=== PATIENT | female | born 1950 | race Caucasian/White ===

== ENCOUNTER 2016-11-01 16:32 | Emergency (ER) ==
[2016-11-01 17:07] LABS: MANUAL DIFF NEEDED? NO
--- NOTE | 2016-11-01 17:09 | PROVIDER DOCUMENTATION ---
HPI-Female /OB/Breast - General Chief Complaint: Flank Pain Stated Complaint: BLOODY STOOL Time Seen by Provider: 11/01/16 16:54 Source: reports: patient Allergies/Adverse Reactions: Patient Allergies Allergy/AdvReac Type Severity Reaction Status Date / Time morphine Allergy Severe RASH Verified 11/01/16 17:46 Home Medications: Home Meds Unobtainable 11/01/16 - History of Present Illness-Female /OB Nature of Presenting Problem: Pt is a 66 y/o female c chief complaint of painless hematuria starting this morning. Pt states that she had gross hematuria that has worsened and passing blood clots. Pt states that she has had a h/o breast cancer (in remission 13 years). Pt had an elective hysterectomy (does not recall the year) because she was concerned about cancer in her reproductive organs. Pt also has a h/o htn, hld (untreated), and depression. On arrival, pt is in no distress. Review of Systems - Adult - REVIEW OF SYSTEMS - ADULT Constitutional: reports: no symptoms reported. denies: chills, fatique Eyes: reports: no symptoms reported. denies: blurred vision, double vision Ears, Nose, Mouth & Throat: reports: no symptoms reported. denies: ear discharge, nose pain Cardiovascular: reports: no symptoms reported. denies: chest pain, orthopnea Respiratory: reports: no symptoms reported. denies: cough, shortness of breath Gastrointestinal: reports: no symptoms reported. denies: difficulty swallowing , frequent heartburn Genitourinary: reports: hematuria Musculoskeletal: reports: no symptoms reported Integumentary: reports: no symptoms reported. denies: itching, rash Neurological: reports: no symptoms reported. denies: numbness, paresthesia Psychiatric: reports: no symptoms reported. denies: anxiety, emotional problems Endocrine: reports: no symptoms reported. denies: cold intolerance, heat intolerance Hematologic/Lymphatic: reports: no symptoms reported. denies: blood clots, low blood count Allergic/Immunologic: reports: no symptoms reported. denies: allergic reactions , food allergy All Other Systems: Reviewed and Negative Past History - Adult - PAST MEDICAL HISTORY-ADULT Review of Records: reports: Old Records Reviewed, Nursing Assessment Review, Medications Reviewed, Social history reviewed & non-contributory. Major Childhood Illnesses: reports: denies history Cardiovascular: reports: HTN, hyperlipidemia Respiratory: reports: denies history Gastrointestinal: reports: denies history Obstetrical/Gynecological: reports: denies history Genitourinary: reports: denies history Musculoskeletal: reports: denies history Neurological: reports: denies history Psychiatric: reports: depression Endocrine/Immune: reports: denies history Other Conditions: reports: other cancer (breast) - PRIOR SURGERIES/PROCEDURES Surgical/Procedure History: reports: breast (L mastectomy) - IMMUNIZATION STATUS Childhood Immunizations: See Nurse Assessment Flu Vaccine: See Nurse Assessment - FAMILY HISTORY Family History: reviewed, not pertinent - SOCIAL HISTORY Smoking: denies Substance Use: none/never Alcohol Use Frequency: never Living Situation: family Physical Exam-General - PHYSICAL EXAM-ADULT Initial Vital Signs Reviewed: Yes - CONSTITUTIONAL General Appearance: appears well, alert, no apparent distress - EYES Eyes: PERRL/EOMI, pink conjunctivae - HEAD, EARS, NOSE, MOUTH & THROAT HENMT: normocephalic/atraumatic, moist mucous membranes, normal ENT inspection - NECK Neck: non-tender, full range of motion, normal inspection - RESPIRATORY Respiratory: chest non-tender, lungs clear, normal breath sounds - CARDIOVASCULAR Cardiovascular: normal peripheral pulses, regular rate, rhythm, no edema - GASTROINTESTINAL (ABDOMEN) Abdominal Exam: normal bowel sounds, non tender, soft. negative: no organomegaly, no pulsatile mass, abdominal bruit, abnormal bowel sounds, distended, guarding, rigid, rebound, tenderness, hernia, mass, hepatomegaly, spleenomegaly, McBurney's point tenderness, Carter's sign, obturator sign, prominent aortic pulsations, psoas, Rovsing's sign - LYMPHATIC Lymphatic: no adenopathy - MUSCULOSKELETAL Back Exam: normal inspection, no CVA tenderness, no vertebral tenderness Extremity: normal range of motion, non-tender, normal gait - SKIN Integumentary: normal color, normal turgor, warm/dry - NEUROLOGIC Neurologic: grossly normal, no motor/sensory deficits - PSYCHIATRIC Psych/Mental Status: normal mood/affect, normal thought content, normal thought process, oriented x 3 Progress - PLAN OF CARE/RESULTS Progress/Plan/Lab Results: Orders Category Date Time Status CT ABD/PELVIS W/ IV CONT ONLY [CT] Stat Exams 11/01/16 17:11 Taken CBC WITH ELECTRONIC DIFF [HEME] Stat Lab 11/01/16 16:42 Completed COMPREHENSIVE METABOLIC PANEL [CHEM] Stat Lab 11/01/16 16:42 Received PROTIME WITH INR [COAG] Stat Lab 11/01/16 16:42 Received PTT [COAG] Stat Lab 11/01/16 16:42 Received UA NIMS W/REFLEX CULT [URINALYSIS] Stat Lab 11/01/16 16:44 Completed Laboratory Tests 11/01/16 11/01/16 11/01/16 16:42 16:42 16:42 WBC 8.31 RBC 5.18 Hgb 14.9 Hct 44.4 MCV 85.7 MCH 28.8 MCHC 33.6 RDW Std Deviation 13.2 Plt Count 264 MPV 10.5 H Immature Gran % (Auto) 0.4 Neut % (Auto) 62.0 Lymph % (Auto) 26.4 [place] % (Auto) 6.4 Eos % (Auto) 4.6 Baso % (Auto) 0.2 Immature Gran # (Auto) 0.03 Neut # (Auto) 5.16 Lymph # (Auto) 2.19 [place] # (Auto) 0.53 Eos # (Auto) 0.38 Baso # (Auto) 0.02 PT 10.4 INR 0.98 PTT (Actin FS) 27.1 Sodium 138 Potassium 4.4 Chloride 101 Carbon Dioxide 25 Anion Gap 12 BUN 17 Creatinine 0.8 Estimated GFR/1.73 m2 > 60 BUN/Creatinine Ratio 21 Glucose 99 Calculated Osmolality 277 Calcium 9.4 Total Bilirubin 0.29 AST 21 ALT 24 Alkaline Phosphatase 94 Total Protein 7.1 Albumin 4.0 Globulin 3.1 Albumin/Globulin Ratio 1.3 Urine Source Urine Color Urine Turbidity Urine pH Ur Specific [place] Urine Protein Ur Glucose (Stick) Ur Ketones (Stick) Urine Blood Urine Nitrite Urine Bilirubin Urobilinogen Dipstick Urine Leukocytes Urine WBC (Auto) Urine RBC (Auto) U Epithel Cells (Auto) Urine Bacteria (Auto) 11/01/16 16:44 WBC RBC Hgb Hct MCV MCH MCHC RDW Std Deviation Plt Count MPV Immature Gran % (Auto) Neut % (Auto) Lymph % (Auto) [place] % (Auto) Eos % (Auto) Baso % (Auto) Immature Gran # (Auto) Neut # (Auto) Lymph # (Auto) [place] # (Auto) Eos # (Auto) Baso # (Auto) PT INR PTT (Actin FS) Sodium Potassium Chloride Carbon Dioxide Anion Gap BUN Creatinine Estimated GFR/1.73 m2 BUN/Creatinine Ratio Glucose Calculated Osmolality Calcium Total Bilirubin AST ALT Alkaline Phosphatase Total Protein Albumin Globulin Albumin/Globulin Ratio Urine Source CLEAN CATCH Urine Color BROWN Urine Turbidity CLEAR Urine pH 7.0 Ur Specific [place] 1.002 Urine Protein 70 A Ur Glucose (Stick) NEGATIVE Ur Ketones (Stick) NEGATIVE Urine Blood LARGE A Urine Nitrite NEGATIVE Urine Bilirubin NEGATIVE Urobilinogen Dipstick NORMAL Urine Leukocytes TRACE A Urine WBC (Auto) <10 Urine RBC (Auto) TNTC A U Epithel Cells (Auto) <10 Urine Bacteria (Auto) NEGATIVE Vital Signs - 24 hr 11/01/16 16:34 Temperature 97.4 F L Pulse Rate 74 Respiratory 18 Rate Blood Pressure 187/95 O2 Sat by Pulse 99 Oximetry - REASSESSMENT Reassessment #1 Time Reassessed: 18:27 (Discussed c Dr. Garcia (ER MD) who agreed c workup and plan of care. ) - CT/MRI 1 CT Study: Abdomen, Pelvis Impression: Abnormal (unremarkable kidneys and bladder. GB full of stones c no surrounding inflammatory change. 1.3cm nodule adjacent to the R adrenal that is probably a prominent node but is nonspecific. No definite acute pathology - prelim radiology report) Departure - Departure Time of Disposition Order: 18:28 DIAGNOSIS: Hematuria Disposition: HOME 01 Certified Medical Emergency: Emergent Condition: Stable Additional Instructions: ED Follow Up Instructions: You have been treated by a care provider in the Emergency Department. These instructions are being provided to you so you can have an understanding of how to care for yourself upon discharge. Upon discharge from the Emergency Department, you are responsible for making arrangements for follow-up care by a physician of your choice. Take all prescribed medications as directed. Return to the Emergency Department immediately for any new or worsening symptoms. You may call the Physician Referral phone number at [phone] to obtain a list of Physicians who are taking new patients. Referrals: Dwight Grajeda MD [Primary Care Provider] - Hesham Cavazos DO [STAFF PHYSICIAN] - Attestation - Physician/ Mid-level Attestation Patient care was provided by Mid-level provider (CHANNEL DIRECTOR/PA):: Yes Mid-level provider:: Jose Raul Valentine Mid-level documentation review:: The Mid-level provider documentation, treatment plan and medical decision making was reviewed by the physician who agrees with all treatment and medical decision making by the MLP.
[2016-11-01 17:10] LABS: BASO% 0.2 % (0.0-0.8); EOS# 0.38 X1000 (0.0-0.7); EOS% 4.6 % (0.0-10.0); HEMATOCRIT 44.4 % (37.0-47.0); HEMOGLOBIN 14.9 g/dL (12.0-16.0); IMM GRAN# 0.03 X1000 (0.0-0.04); IMM GRAN% 0.4 % (0.0-0.5); LYMPH# 2.19 X1000 (1.2-3.4); LYMPH% 26.4 % (20.5-51.1); MCH 28.8 PG (27-31); MCHC 33.6 g/dL (33-37); MCV 85.7 FL (81-99); MONO# 0.53 X1000 (0.11-0.59); MONO% 6.4 % (1.7-9.3); MPV 10.5 FL (7.4-10.4); PLT 264 X1000 (130-400); RBC 5.18 XMIL (4.2-5.4)
[2016-11-01 17:14] LABS: URINE MICRO REVIEW NEEDED? NO; URINE SOURCE CLEAN CATCH
[2016-11-01 17:19] LABS: BILIRUBIN URINE NEGATIVE (NEGATIVE); BLOOD URINE LARGE (NEGATIVE); COLOR BROWN; GLUCOSE URINE NEGATIVE (NEGATIVE); LEUKOCYTES URINE TRACE (NEGATIVE); NITRITE URINE NEGATIVE (NEGATIVE); PROTEIN URINE 70 mg/dL (NEGATIVE); SP GRAVITY URINE 1.002; TURBIDITY URINE CLEAR (CLEAR); UR EPITHELIAL CELLS <10 /HPF (<10); URINE BACTERIA NEGATIVE /HPF; URINE CULTURE NEEDED? YES; URINE RBC TNTC /HPF (<10); URINE WBC <10 /HPF (<10); UROBILINOGEN URINE NORMAL (NORMAL)
[2016-11-01 17:22] LABS: INR 0.98; PROTIME 10.4 Seconds (9.2-11.7); PTT 27.1 Seconds (22.0-36.0)
[2016-11-01 17:34] LABS: AGAP 12; ALKALINE PHOSPHATASE 94 U/L (32-104); BUN 17 mg/dL (8-22); CALCIUM 9.4 mg/dL (8.8-10.2); CHLORIDE 101 mmol/L (98-107); COSMO 277; GOT 21 U/L (10-30); GPT 24 U/L (10-36); POTASSIUM 4.4 mmol/L (3.5-5.1); SODIUM 138 mmol/L (136-145); TCO2 25 mmol/L (25-35); TOTAL BILIRUBIN 0.29 mg/dL (0.20-1.00); TOTAL PROTEIN 7.1 g/dL (6.3-8.3)
[2016-11-01 18:56] VITALS: BP 179/88
--- NOTE | 2016-11-01 21:30 | Diag Imaging Result Document ---
PROCEDURE NAME: CT ABD/PELVIS W/ IV CONT ONLY - 11/01/2016 STUDY: CT abdomen and pelvis with intravenous contrast. COMPARISON: No comparison films. PROTOCOL: Dose reduction protocol. There is mild fatty infiltration of the liver. No focal hepatic abnormality. Multiple noncalcified stones are found within the gallbladder. No adjacent inflammation. Normal spleen, pancreas, and aorta. There is a 1.2 cm right adrenal nodule versus an adjacent lymph node. There is also a 1.2 cm left adrenal nodule. No renal stones. No solid renal mass. No hydronephrosis. No bowel obstruction. Normal appendix. No abscess. The urinary bladder is distended and appears normal. The uterus has been removed. No pelvic mass. IMPRESSION: 1. Cholelithiasis. 2. Fatty infiltration of the liver. 3. Adrenal nodules. 4. No kidney abnormality. 5. Hysterectomy. A preliminary report was given at 6:10 p.m.
== END 2016-11-01 19:19 | disposition home or self-care (01) ==
LOC: ED 16:32
DX: R31.9 Hematuria, unspecified (principal); K80.20 Calculus of gallbladder without cholecystitis without obstruction; K76.0 Fatty (change of) liver, not elsewhere classified; R10.9 Unspecified abdominal pain; K92.1 Melena; I10 Essential (primary) hypertension; E78.5 Hyperlipidemia, unspecified; Z85.3 Personal history of malignant neoplasm of breast; Z90.12 Acquired absence of left breast and nipple
CPT/HCPCS: 36415; 74177; 80053; 81001; 85025; 85610; 85730; 87088; Q9967

== ENCOUNTER 2016-11-02 21:02 | Emergency (ER) ==
[2016-11-02] MEDS ORDERED: ZOFRAN IV ONE (21:24)
[2016-11-02] MEDS ORDERED: DILAUDID IV ONE ×2 (21:24→22:30)
[2016-11-02] MEDS ORDERED: TORADOL IV ONE (21:24)
--- NOTE | 2016-11-02 21:38 | PROVIDER DOCUMENTATION ---
HPI-General Adult - General Chief Complaint: Return/Recheck Stated Complaint: BLOOD IN URINE, RECHECK Time Seen by Provider: 11/02/16 21:23 Source: patient Allergies/Adverse Reactions: Patient Allergies Allergy/AdvReac Type Severity Reaction Status Date / Time morphine Allergy Severe RASH Verified 11/02/16 21:19 Home Medications: Alprazolam [Xanax] 0.5 mg PO PRN PRN 11/02/16 Anastrozole [Arimidex] 1 mg PO DAILY 11/02/16 Aspirin 81 mg PO DAILY 11/02/16 LISINOpril [Prinivil] 10 mg PO DAILY 11/02/16 Sertraline [Zoloft] 25 mg PO DAILY 11/02/16 - History of Present Illness -Gen Adult Nature of Presenting Problems: 66 y/o f presents to the ed with right side flank pain with an onset of tonight. pt was seen here yesterday with c/o blood in urine, pt had renal stone search that came up negative. pt states she is still passing blood. pt is also vomiting. pt denies any abdominal pain/chest pain. Location of Pain/Injury: reports: other (right flank) Pain Radiation: reports: no radiation Quality of Pain: reports: aching Severity: reports: moderate Onset/Duration: reports: 1-3 hours ago Timing: reports: still present Similar Symptoms Previously?: No Recently seen or treated by another doctor?: Yes Review of Systems - Adult - REVIEW OF SYSTEMS - ADULT Constitutional: denies: chills, fever Gastrointestinal: reports: vomiting. denies: abdominal pain Genitourinary: reports: flank pain. denies: incontinence Past History - Adult - PAST MEDICAL HISTORY-ADULT Review of Records: reports: Old Records Reviewed, Nursing Assessment Review, Medications Reviewed Major Childhood Illnesses: reports: denies history Cardiovascular: reports: HTN, hyperlipidemia Respiratory: reports: denies history Gastrointestinal: reports: denies history Obstetrical/Gynecological: reports: denies history Genitourinary: reports: denies history Musculoskeletal: reports: denies history Neurological: reports: denies history Psychiatric: reports: depression Endocrine/Immune: reports: denies history Other Conditions: reports: other cancer (breast) - PRIOR SURGERIES/PROCEDURES Surgical/Procedure History: reports: breast (L mastectomy) - IMMUNIZATION STATUS Childhood Immunizations: See Nurse Assessment Flu Vaccine: See Nurse Assessment - FAMILY HISTORY Family History: reviewed, not pertinent - SOCIAL HISTORY Smoking: non-smoker Physical Exam-General - PHYSICAL EXAM-ADULT Initial Vital Signs Reviewed: Yes - CONSTITUTIONAL General Appearance: alert - EYES Eyes: PERRL/EOMI, pink conjunctivae, fundi clear, no AV nicking - HEAD, EARS, NOSE, MOUTH & THROAT HENMT: normocephalic/atraumatic, moist mucous membranes, normal ENT inspection - NECK Neck: non-tender, full range of motion, supple - RESPIRATORY Respiratory: chest non-tender, lungs clear, normal breath sounds - CARDIOVASCULAR Cardiovascular: normal peripheral pulses, regular rate, rhythm - GASTROINTESTINAL (ABDOMEN) Abdominal Exam: normal bowel sounds, non tender, soft - MUSCULOSKELETAL Back Exam: normal inspection - SKIN Integumentary: normal color, normal turgor, warm/dry - PSYCHIATRIC Psych/Mental Status: normal mood/affect, normal thought content, normal thought process, oriented x 3 Progress - PLAN OF CARE/RESULTS Progress/Plan/Lab Results: plan of care: labs, imaging Laboratory Tests 11/02/16 11/02/16 21:30 21:30 WBC 10.38 RBC 5.05 Hgb 14.5 Hct 43.0 MCV 85.1 MCH 28.7 MCHC 33.7 RDW Std Deviation 13.3 Plt Count 291 MPV 10.4 Immature Gran % (Auto) 0.3 Neut % (Auto) 44.6 Lymph % (Auto) 40.9 [place] % (Auto) 9.1 Eos % (Auto) 4.7 Baso % (Auto) 0.4 Immature Gran # (Auto) 0.03 Neut # (Auto) 4.63 Lymph # (Auto) 4.25 H [place] # (Auto) 0.94 H Eos # (Auto) 0.49 Baso # (Auto) 0.04 Sodium 143 Potassium 3.6 D Chloride 105 Carbon Dioxide 23 L Anion Gap 15 BUN 19 Creatinine 0.8 Estimated GFR/1.73 m2 > 60 BUN/Creatinine Ratio 24 Glucose 120 H Calculated Osmolality 288 Calcium 9.8 Total Bilirubin 0.34 AST 17 ALT 21 Alkaline Phosphatase 95 Total Protein 7.2 Albumin 4.1 Globulin 3.1 Albumin/Globulin Ratio 1.3 Lipase 35 Orders Category Date Time Status RENAL STONE SEARCH [CT] Stat Exams 11/02/16 21:31 Taken CBC WITH ELECTRONIC DIFF [HEME] Stat Lab 11/02/16 21:30 Completed CMP [COMPREHENSIVE METABOLIC PANEL] [CHEM] Stat Lab 11/02/16 21:30 Completed LIPASE [CHEM] Stat Lab 11/02/16 21:30 Completed URINALYSIS W/POSS RFLX CULT [URINALYSIS] Stat Lab 11/02/16 21:20 Uncollected Hydromorphone [Dilaudid] Med 11/02/16 21:24 Discontinued 1 mg IV NOW ONE Ketorolac [Toradol] Med 11/02/16 21:24 Discontinued 30 mg IV NOW ONE Ondansetron [Zofran] Med 11/02/16 21:24 Discontinued 4 mg IV NOW ONE Vital Signs - 24 hr 11/02/16 21:13 Temperature 97.9 F Pulse Rate 75 Respiratory 20 Rate Blood Pressure 190/118 O2 Sat by Pulse 98 Oximetry - CT/MRI 1 CT Study: Renal Stone CT Results: possible hemorrhage within the right collecting system - CONSULTS/PCP/HOSPITALIST Notification #1 *Consult/PCP/Hospitalist*: Dr. Godinez Time Discussed: 22:24 Consult Disposition: F/U in office Departure - Departure Time of Disposition Order: 22:33 DIAGNOSIS: Renal colic on right side Disposition: HOME 01 Certified Medical Emergency: Emergent Condition: Stable Additional Instructions: ED Follow Up Instructions: You have been treated by a care provider in the Emergency Department. These instructions are being provided to you so you can have an understanding of how to care for yourself upon discharge. Upon discharge from the Emergency Department, you are responsible for making arrangements for follow-up care by a physician of your choice. Follow up with urologist in the morning. Nothing to eat/drink after midnight. Take all prescribed medications as directed. Return to the Emergency Department immediately for any new or worsening symptoms. You may call the Physician Referral phone number at [phone] to obtain a list of Physicians who are taking new patients. Referrals: Dwight Grajeda MD [Primary Care Provider] - Attestation - Scribe Verification/Attestation Scribe:: Neela Villalobos Acting as Scribe for:: Hector Pineda Scribe documention review:: This chart was documented by a scribe and accurately reflects the service the provider performed and the decisions made by the provider.
[2016-11-02 21:48] LABS: MANUAL DIFF NEEDED? NO
[2016-11-02 21:56] LABS: BASO% 0.4 % (0.0-0.8); EOS# 0.49 X1000 (0.0-0.7); EOS% 4.7 % (0.0-10.0); HEMOGLOBIN 14.5 g/dL (12.0-16.0); IMM GRAN# 0.03 X1000 (0.0-0.04); IMM GRAN% 0.3 % (0.0-0.5); LYMPH# 4.25 X1000 (1.2-3.4); LYMPH% 40.9 % (20.5-51.1); MCH 28.7 PG (27-31); MCHC 33.7 g/dL (33-37); MCV 85.1 FL (81-99); MONO# 0.94 X1000 (0.11-0.59); MONO% 9.1 % (1.7-9.3); MPV 10.4 FL (7.4-10.4); NEUT% 44.6 % (42.2-75.2); PLT 291 X1000 (130-400); RBC 5.05 XMIL (4.2-5.4)
[2016-11-02 22:11] LABS: AGAP 15; ALBUMIN 4.1 g/dL (3.5-5.0); ALKALINE PHOSPHATASE 95 U/L (32-104); BUN 19 mg/dL (8-22); CALCIUM 9.8 mg/dL (8.8-10.2); CHLORIDE 105 mmol/L (98-107); COSMO 288; GOT 17 U/L (10-30); GPT 21 U/L (10-36); LIPASE 35 U/L (13-60); POTASSIUM 3.6 mmol/L (3.5-5.1); SODIUM 143 mmol/L (136-145); TCO2 23 mmol/L (25-35); TOTAL BILIRUBIN 0.34 mg/dL (0.20-1.00); TOTAL PROTEIN 7.2 g/dL (6.3-8.3)
[2016-11-02] MEDS ORDERED: PERCOCET-10 PO ONE (22:26)
[2016-11-02 23:56] VITALS: BP 173/86
--- NOTE | 2016-11-03 08:19 | Diag Imaging Result Document ---
PROCEDURE NAME: RENAL STONE SEARCH - 11/02/2016 CT UROGRAM WITHOUT CONTRAST: FINDINGS: There is mild fibrosis in the lung bases which has not changed significantly since the previous study of 11/01/2016. There is a hiatal hernia. There is a left adrenal nodule which has a CT density of -7 Hounsfield units which is consistent with an adenoma. There is no evidence of hydronephrosis or stones on the left. There is hydronephrosis on the right side which has worsened since the previous study of 11/01/2016. The pelvis and some of the infundibula demonstrate a hyperdensity but some of this may be due to the presence of residual excreted contrast from yesterday. There is still no apparent calcified stone or other identifiable obstructing lesion in the urinary tract. There are multiple fairly large cholesterol stones in the gallbladder, some of which are approaching 2 cm in size. There is no evidence of bowel dilatation or appendicitis. There is some stool in the distal colon. The urinary bladder is not distended. The regional skeleton is stable in appearance. IMPRESSION: Apparent right-sided hydronephrosis and possible hematuria. The obstruction or dilatation of the system may be related to blood clots, however, otherwise there is no apparent etiology of either the obstruction or the hematuria. There has definitely been some change since 11/01/2016 in the degree of dilatation of the collecting system however. Further evaluation with ureteroscopy and retrograde pyelography may be desirable.
== END 2016-11-02 23:55 | disposition home or self-care (01) ==
LOC: ED 21:02
DX: N23 Unspecified renal colic (principal); R10.9 Unspecified abdominal pain; R31.9 Hematuria, unspecified; R11.10 Vomiting, unspecified; I10 Essential (primary) hypertension; E78.5 Hyperlipidemia, unspecified; F32.9 Major depressive disorder, single episode, unspecified; Z79.82 Long term (current) use of aspirin; Z79.899 Other long term (current) drug therapy; Z85.3 Personal history of malignant neoplasm of breast; Z90.12 Acquired absence of left breast and nipple
CPT/HCPCS: 74176; 80053; 83690; 85025; 96374; 96375; 96376; J1170; J1885; J2405